=== PATIENT | female | born 1985 | race Caucasian/White ===

== ENCOUNTER → 2016-08-30 | Outpatient (REF) | payer OTHER ==
[~2016-08-30] MED LIST: /MOM400 PO; ACET50TA PO; ANUS2.5C2 EXT; DOCU10ELUD PO; IBUP600T26 PO; LANOOIN21 EX; PRENTAB74 PO
== END ==
LOC: M LAB REF 16:07
PROVIDERS: ATTEND Physician Assistant
DX: N39.0 Urinary tract infection, site not specified (principal)

== ENCOUNTER → 2016-10-20 | Outpatient (REF) | payer OTHER | LOC: M SFHCWAGY 10:17 | PROVIDERS: ATTEND Nurse Practitioner Women's Health | DX: Z12.4 Encounter for screening for malignant neoplasm of cervix (principal) ==

== ENCOUNTER → 2017-01-01 | Outpatient (REF) | payer OTHER ==
[2017-01-01 09:45] LABS: BASO % 0.6 % (0.0-1.0); EOS % 1.1 % (0.0-3.0); LARGE UNSTAINED CELL # 0.1 K/mm3 (0.0-0.4); LARGE UNSTAINED CELL % 2.7 % (0.0-4.0); LYMPH # 1.5 K/mm3 (1.5-4.5); LYMPH % 35.4 % (24.0-44.0); MEAN CORPUSCULAR HEMOGLOBIN 33.6 pg (27.0-33.0); MEAN CORPUSCULAR HGB CONC 35.1 g/dl (32.0-36.5); MEAN CORPUSCULAR VOLUME 95.6 fl (80.0-96.0); MONO # 0.3 K/mm3 (0.0-0.8); MONO % 6.6 % (0.0-5.0); NEUTROPHILS # 2.1 K/mm3 (1.8-7.7); NEUTROPHILS % 53.6 % (36.0-66.0); PLATELET COUNT, AUTOMATED 321 k/mm3 (150-450); WHITE BLOOD COUNT 3.9 K/mm3 (4.0-10.0)
[2017-01-01 09:58] LABS: FREE T4 1.2 NG/DL (0.76-1.46)
== END ==
LOC: M SFHCPLAZ 07:44
PROVIDERS: ATTEND Nurse Practitioner Family
DX: E53.8 Deficiency of other specified B group vitamins (principal); L65.9 Nonscarring hair loss, unspecified; E55.9 Vitamin D deficiency, unspecified

== ENCOUNTER → 2017-02-18 | Outpatient (CLI) | payer OTHER ==
[2017-02-18 17:23] LABS: BASO # 0.1 K/mm3 (0.0-0.2); BASO % 1.1 % (0.0-1.0); EOS # 0.1 K/mm3 (0.0-0.50); EOS % 1.1 % (0.0-3.0); LARGE UNSTAINED CELL # 0.1 K/mm3 (0.0-0.4); LARGE UNSTAINED CELL % 1.3 % (0.0-4.0); LYMPH % 29.9 % (24.0-44.0); MEAN CORPUSCULAR HEMOGLOBIN 33.3 pg (27.0-33.0); MEAN CORPUSCULAR HGB CONC 35.2 g/dl (32.0-36.5); MEAN CORPUSCULAR VOLUME 94.7 fl (80.0-96.0); MONO # 0.4 K/mm3 (0.0-0.8); MONO % 5.7 % (0.0-5.0); NEUTROPHILS # 4.2 K/mm3 (1.8-7.7); NEUTROPHILS % 60.9 % (36.0-66.0); PLATELET COUNT, AUTOMATED 381 k/mm3 (150-450); RED CELL DISTRIBUTION WIDTH 11.7 % (11.5-14.5); WHITE BLOOD COUNT 6.8 K/mm3 (4.0-10.0)
--- NOTE | 2017-02-18 17:35 | REP ---
Clinical: Shortness of breath . Comparison: 01/03/2012 . Technique: PA and lateral. Findings: The mediastinum and cardiac silhouette are normal. The lung selby are clear and without acute consolidation, effusion, or pneumothorax. The skeletal structures are intact and normal. Impression: 1. No acute cardiopulmonary process. Signed by Rom Islas MD 02/18/2017 05:27 P
[2017-02-18 18:08] LABS: ALBUMIN 4.5 GM/DL (3.2-5.2); ALBUMIN/GLOBULIN RATIO 1.32 (1.00-1.93); ALKALINE PHOSPHATASE 78 U/L (45-117); ALT/SGPT 18 U/L (12-78); ANION GAP 7 MEQ/L (8-16); AST/SGOT 7 U/L (15-37); BILIRUBIN,TOTAL 0.4 MG/DL (0.2-1.0); BLOOD UREA NITROGEN 9 MG/DL (7-18); CALCIUM LEVEL 9.4 MG/DL (8.5-10.1); CARBON DIOXIDE LEVEL 28 MEQ/L (21-32); CHLORIDE LEVEL 103 MEQ/L (98-107); CREATININE FOR GFR 0.75 MG/DL (0.55-1.02); GLOMERULAR FILTRATION RATE > 60.0 (>60); GLUCOSE, FASTING 93 MG/DL (70-105); POTASSIUM SERUM 3.5 MEQ/L (3.5-5.1); SODIUM LEVEL 138 MEQ/L (136-145); TOTAL PROTEIN 7.9 GM/DL (6.4-8.2)
== END ==
LOC: M LAB 16:49
PROVIDERS: ATTEND Nurse Practitioner Family
DX: R06.02 Shortness of breath (principal)

== ENCOUNTER → 2017-02-18 | Outpatient (REF) | payer OTHER | LOC: M SFHCPLAZ 16:18 | PROVIDERS: ATTEND Nurse Practitioner Family | DX: R06.02 Shortness of breath (principal); Z53.9 Procedure and treatment not carried out, unspecified reason ==

== ENCOUNTER 2018-11-17 09:45 | Outpatient (RCR) | payer OTHER | END 2018-11-20 | LOC: M PT 09:45 | PROVIDERS: ATTEND Nurse Practitioner Family | DX: M77.01 Medial epicondylitis, right elbow (principal); G56.21 Lesion of ulnar nerve, right upper limb ==

== ENCOUNTER 2018-11-29 08:15 | Outpatient (RCR) | payer OTHER ==
[~2018-11-29 08:15] MED LIST changes: -/MOM400 PO; -ACET50TA PO; -DOCU10ELUD PO; +DOCU5LIQ PO; +MAPA500T17 PO; +MILK10SU PO
== END 2018-12-20 ==
LOC: M PT 08:15
PROVIDERS: ATTEND Nurse Practitioner Family
DX: M77.01 Medial epicondylitis, right elbow (principal); G56.21 Lesion of ulnar nerve, right upper limb

== ENCOUNTER → 2018-12-28 | Outpatient (CLI) | payer OTHER ==
[~2018-12-28] MED LIST changes: +ADDE30CA3 PO; +CEFD300CAP PO; +LAMI1TAB8 PO; +PERC5TAB12 PO
--- NOTE | 2018-12-29 02:11 | REP ---
Clinical: Acute lower back pain . Technique: AP, lateral, bilateral oblique, and coned-down views. Findings: Alignment and lordosis is maintained. The vertebral bodies including transverse process and spinous processes are intact and normal. There is no evidence for acute fracture / compression injury or subluxation. No evidence for spondylolysis or spondylolisthesis. No significant degenerative change is noted. Impression: Normal lumbosacral spine radiograph series. Electronically Signed by Rom Islas MD 12/29/2018 02:02 A
== END ==
LOC: M RAD 13:50
PROVIDERS: ATTEND Nurse Practitioner Family
DX: M54.5 Low back pain (principal)

== ENCOUNTER 2018-12-29 13:18 | Emergency (ER) | payer OTHER ==
[~2018-12-29] VITALS: Ht 157.5 cm; Wt 74.2 kg
[~2018-12-29 13:18] MED LIST changes: -ADDE30CA3 PO; -CEFD300CAP PO; -LAMI1TAB8 PO; -PERC5TAB12 PO
[2018-12-29] MEDS ORDERED: LAMI1TAB8 PO (13:23)
[2018-12-29] MEDS ORDERED: CEFD300CAP PO (13:23)
[2018-12-29] MEDS ORDERED: ADDE30CA3 PO (13:23)
[2018-12-29] MEDS ORDERED: LIDOCAINE 1% MDV 20ML VIAL SC ONE (15:00)
[2018-12-29] MEDS ORDERED: PERC5TAB12 PO (15:42)
[2018-12-29 16:05] VITALS: BP 135/78
== END 2018-12-29 16:08 | disposition home or self-care (01) ==
LOC: M ED 13:18
DX: N75.1 Abscess of Bartholin's gland (principal); F31.9 Bipolar disorder, unspecified; F33.9 Major depressive disorder, recurrent, unspecified; Z88.0 Allergy status to penicillin; Z88.1 Allergy status to other antibiotic agents

== ENCOUNTER 2019-04-10 10:47 | Emergency (ER) | payer OTHER ==
[~2019-04-10] VITALS: Ht 157.5 cm; Wt 73.7 kg
[~2019-04-10 10:47] MED LIST changes: +ADDE30CA3 PO; +CEFD300CAP PO; +LAMI1TAB8 PO; +PERC5TAB12 PO
[2019-04-10] MEDS ORDERED: CLON0.5T8 (10:52)
--- NOTE | 2019-04-10 14:33 | CR.PDOC ---
General Date of Consultation: Apr 10, 2019 Referring Provider: COLT SANDHU PA-C Attending Physician: GEORGES COLE CNM Consultation REASON FOR CONSULTATION/CHIEF COMPLAINT: Bartholin cyst. HISTORY OF PRESENT ILLNESS: Patient is a 34-year-old female who presents with complaints of a Bartholin cyst that started over the last 3 days. She reports since yesterday it has doubled in size. States she is having pain and discomfort even with sitting. Patient had a Bartholin cyst in December that was drained. Reports pain is a 5/10. ALLERGIES: Please see below. HOME MEDICATIONS: Please see below. PAST MEDICAL HISTORY: 1. Depression. 2. Bartholin cyst in December 2018. PAST SURGICAL HISTORY: 1. none FAMILY HISTORY: non-contributory SOCIAL HISTORY: Children: Employment: employed Tobacco use:no Illicit drug use: none IV drug use: no PHYSICAL EXAMINATION: VITAL SIGNS: Please see below. CONSTITUTIONAL: A+Ox3. RESPIRATORY: regular rate without use of accessory muscles. GENITOURINARY: Moderate size Bartholin abscess located on right side. Size of half dollar with erythema. SKIN: Warm, dry without rash or lesions. LABORATORY DATA: Please see below. Procedure: I&D of Bartholin abscess: Area was cleaned with Betadine. No anesthesia used. A small incision was made using a disposable blade. Purulent green and yellow discharge drained/expressed from incision. 4x4 applied to area. ASSESSMENT/PLAN: 1. Patient is to call with fever, pain or signs of infection at site. 2. Note given per patient's request to wear loose pants to work. Vital Signs/I&O Vital Signs Date Time Temp Pulse Resp B/P (MAP) Pulse Ox O2 Delivery O2 Flow Rate FiO2 04/10/19 13:41 04/10/19 10:47 98.2 91 16 98 Room Air Allergies Coded Allergies: amoxicillin (Verified Allergy, Unknown, 12/29/18) ciprofloxacin (Verified Allergy, Unknown, 12/29/18) Home Medications Scheduled Dextroamphetamine/Amphetamine (Adderall Xr 30 mg Capsule) 30 Mg Cap.er.24h, 30 MG PO QAM for 30 Days, #30 (Reported) Lamotrigine (Lamictal) 150 Mg Tablet, 150 MG PO BID for 30 Days, #60 (Reported) Miscellaneous Medications Clonazepam (Clonazepam) 0.5 Mg Tablet, (Reported) GEORGES COLE CNM Apr 10, 2019 14:33
[2019-04-10 15:12] VITALS: BP 122/77
== END 2019-04-10 15:17 | disposition home or self-care (01) ==
LOC: M ED 10:47
DX: N75.1 Abscess of Bartholin's gland (principal); F41.9 Anxiety disorder, unspecified; F33.9 Major depressive disorder, recurrent, unspecified; Z79.899 Other long term (current) drug therapy; Z87.42 Personal history of other diseases of the female genital tract; Z87.59 Personal history of other complications of pregnancy, childbirth and the puerperium; Z98.890 Other specified postprocedural states; Z88.0 Allergy status to penicillin

== ENCOUNTER → 2019-04-15 | Outpatient (CLI) | payer OTHER ==
[~2019-04-15] MED LIST changes: +CLON0.5T2; +CYMB60CA3 PO
--- NOTE | 2019-04-15 14:11 | REP ---
Right ring finger four views : There is no fracture or dislocation. Mineralization and joint spaces are normal. There are no calcifications or foreign bodies. Impression: Negative Right ring finger . Electronically Signed by Hernan Antonio MD 04/15/2019 02:02 P
== END ==
LOC: M WUC 13:21
PROVIDERS: ATTEND Physician Assistant
DX: S60.041A Contusion of right ring finger without damage to nail, initial encounter (principal); X58.XXXA Exposure to other specified factors, initial encounter; Y92.9 Unspecified place or not applicable

== ENCOUNTER → 2019-05-25 | Outpatient (REF) | payer OTHER ==
[~2019-05-25] MED LIST changes: -CLON0.5T2; +CLON0.5T8; -CYMB60CA3 PO
[2019-05-25 14:52] LABS: HEMATOCRIT 39.8 % (36.0-47.0); MEAN CORPUSCULAR HEMOGLOBIN 30.2 pg (27.0-33.0); MEAN CORPUSCULAR HGB CONC 32.7 g/dl (32.0-36.5); MEAN CORPUSCULAR VOLUME 92.3 fl (80.0-96.0); PLATELET COUNT, AUTOMATED 415 10^3/uL (150-450); RED BLOOD COUNT 4.31 10^6/uL (4.00-5.40); WHITE BLOOD COUNT 6.6 10^3/uL (4.0-10.0)
[2019-05-25 15:07] LABS: ALBUMIN 4.2 GM/DL (3.2-5.2); ALT/SGPT 19 U/L (12-78); BLOOD UREA NITROGEN 6 MG/DL (7-18); CALCIUM LEVEL 9.5 MG/DL (8.5-10.1); CARBON DIOXIDE LEVEL 30 MEQ/L (21-32); CHLORIDE LEVEL 100 MEQ/L (98-107); CHOLESTEROL LEVEL 143 MG/DL (<200); CHOLESTEROL RISK RATIO 2.234 (<5); CREATININE FOR GFR 0.71 MG/DL (0.55-1.30); FREE T4 0.91 NG/DL (0.76-1.46); GLOMERULAR FILTRATION RATE > 60.0 (>60); GLUCOSE, FASTING 86 MG/DL (70-100); HDL CHOLESTEROL 64 MG/DL (>40); LDL CHOLESTEROL 61 MG/DL (<100); NON-HDL-C 79 MG/DL; POTASSIUM SERUM 4.5 MEQ/L (3.5-5.1); SODIUM LEVEL 137 MEQ/L (136-145); TOTAL 25(OH) VITAMIN D 22.6 NG/ML (30.0-100.0); TOTAL PROTEIN 7.6 GM/DL (6.4-8.2); TRIGLYCERIDES LEVEL 90 MG/DL (<150)
== END ==
LOC: M SFHCPLAZ 10:57
PROVIDERS: ATTEND Nurse Practitioner Family
DX: Z00.00 Encounter for general adult medical examination without abnormal findings (principal); F41.8 Other specified anxiety disorders; R53.83 Other fatigue; E55.9 Vitamin D deficiency, unspecified; Z13.220 Encounter for screening for lipoid disorders; Z68.30 Body mass index [BMI] 30.0-30.9, adult

== ENCOUNTER → 2019-05-26 | Outpatient (REF) | payer OTHER ==
[2019-05-31 08:20] LABS: HPV HYBRID CAPTURE II Negative (Negative)
== END ==
LOC: M SFHCWAGY 13:27
PROVIDERS: ATTEND Nurse Practitioner Women's Health
DX: Z12.4 Encounter for screening for malignant neoplasm of cervix (principal)

== ENCOUNTER 2019-06-17 07:17 | Emergency (ER) | payer OTHER ==
[~2019-06-17] VITALS: Ht 154.9 cm; Wt 77.7 kg
[2019-06-17 07:17] VITALS: BP 138/82
[2019-06-17] MEDS ORDERED: CYMB60CA3 PO (07:21)
[2019-06-17] MEDS ORDERED: LIDOCAINE 1% MDV 20ML VIAL SC ONE (07:30)
[2019-06-17] MEDS ORDERED: IBUPROFEN 800 MG TAB PO ONE (08:00)
== END 2019-06-17 08:08 | disposition home or self-care (01) ==
LOC: M ED 07:17
DX: S61.211A Laceration without foreign body of left index finger without damage to nail, initial encounter (principal); W26.8XXA Contact with other sharp object(s), not elsewhere classified, initial encounter; Y92.009 Unspecified place in unspecified non-institutional (private) residence as the place of occurrence of the external cause; Y93.89 Activity, other specified; Y99.8 Other external cause status; Z79.899 Other long term (current) drug therapy; Z88.1 Allergy status to other antibiotic agents; Z88.0 Allergy status to penicillin

== ENCOUNTER → 2019-08-04 | Outpatient (CLI) | payer OTHER ==
[~2019-08-04] MED LIST changes: +CLON0.5T2; -CLON0.5T8; +CYMB60CA3 PO
--- NOTE | 2019-08-04 15:49 | REP ---
Five views lumbar spine: 08/04/2019. Indication: Low back pain. Comparison: 12/28/2018. Findings: There is no acute fracture, subluxation or dislocation. No lytic or blastic lesions are present. Impression: No acute osseous injury of the lumbar spine. Electronically Signed by Corey Armando DO 08/04/2019 03:40 P
== END ==
LOC: M WUC 15:00
PROVIDERS: ATTEND Nurse Practitioner Family
DX: M54.5 Low back pain (principal)

== ENCOUNTER → 2019-09-18 | Outpatient (CLI) | payer OTHER ==
[2019-09-18 19:05] LABS: BASO # 0.1 10^3/uL (0.0-0.2); BASO % 0.6 % (0.0-1.0); EOS # 0.1 10^3/uL (0.0-0.5); HEMOGLOBIN 12.3 g/dl (12.0-15.5); LYMPH # 2.7 10^3/uL (1.5-5.0); LYMPH % 34.6 % (24.0-44.0); MEAN CORPUSCULAR HEMOGLOBIN 30.1 pg (27.0-33.0); MEAN CORPUSCULAR HGB CONC 33.2 g/dl (32.0-36.5); MEAN CORPUSCULAR VOLUME 90.5 fl (80.0-96.0); MONO # 0.8 10^3/uL (0.0-0.8); MONO % 9.7 % (0.0-5.0); NEUTROPHILS # 4.3 10^3/uL (1.5-8.5); NEUTROPHILS % 53.7 % (36.0-66.0); PLATELET COUNT, AUTOMATED 399 10^3/uL (150-450); RED BLOOD COUNT 4.09 10^6/uL (4.00-5.40); WHITE BLOOD COUNT 7.9 10^3/uL (4.0-10.0)
[2019-09-18 19:43] LABS: ALBUMIN 4.2 GM/DL (3.2-5.2); ALT/SGPT 21 U/L (12-78); BILIRUBIN,TOTAL 0.2 MG/DL (0.2-1.0); BLOOD UREA NITROGEN 12 MG/DL (7-18); CALCIUM LEVEL 9.3 MG/DL (8.5-10.1); CARBON DIOXIDE LEVEL 27 MEQ/L (21-32); CHLORIDE LEVEL 103 MEQ/L (98-107); GLOMERULAR FILTRATION RATE > 60.0 (>60); GLUCOSE, FASTING 80 MG/DL (70-100); POTASSIUM SERUM 3.9 MEQ/L (3.5-5.1); SODIUM LEVEL 137 MEQ/L (136-145); TOTAL PROTEIN 7.5 GM/DL (6.4-8.2)
== END ==
LOC: M WUC 14:36
PROVIDERS: ATTEND Physician Assistant
DX: R21 Rash and other nonspecific skin eruption (principal)

== ENCOUNTER → 2019-10-04 | Outpatient (CLI) | payer OTHER ==
--- NOTE | 2019-10-04 16:21 | REP ---
Clinical: Pelvic pain. Technique: Transabdominal pelvic ultrasound followed by transvaginal examination for better evaluation of the endometrial and adnexa with color Doppler evaluation of the ovaries. Findings: Bladder is partially collapsed but grossly normal in appearance. Heterogeneous anteverted uterus measures 9.4 x 4.2 x 5.5 cm. Endometrial complex measures 12 mm thickness and has a normal trilaminar appearance. There is a 1.1 cm complex hypoechoic intramural lesion along the posterior uterine body which may reflect small fibroid. An 8 mm cyst is also identified in the lower uterine segment which may represent Nabothian cyst. The bilateral ovaries are normal in appearance and vascularity without torsion. Right ovary measures 2.6 x 1.5 x 2.4 cm (RI 0.42) left ovary measures 1.2 x 1.8 x 1.4 cm (vascularity noted). No pelvic fluid or adnexal mass lesion. Impression: Possible small intramural fibroid and sub centimeter Nabothian cyst.
== END ==
LOC: M WHC 14:49
PROVIDERS: ATTEND Nurse Practitioner Women's Health
DX: R10.2 Pelvic and perineal pain (principal)

== ENCOUNTER → 2019-11-12 | Outpatient (REF) | payer OTHER | LOC: M LAB REF 13:04 | PROVIDERS: ATTEND Physician Assistant | DX: J02.9 Acute pharyngitis, unspecified (principal) ==

== ENCOUNTER → 2020-02-18 | Outpatient (REF) | payer OTHER | LOC: M LAB REF 16:05 | PROVIDERS: ATTEND Physician Assistant | DX: R06.2 Wheezing (principal) ==

== ENCOUNTER → 2020-10-11 | Outpatient (REF) | payer OTHER | LOC: M WUC 09:44 | PROVIDERS: ATTEND Physician Assistant | DX: R30.0 Dysuria (principal) ==

== ENCOUNTER → 2021-03-08 | Outpatient (CLI) | payer OTHER ==
--- NOTE | 2021-03-08 18:57 | REP ---
INDICATION: ACUTE BRONCHITIS, UNSPECIFIED. COMPARISON: 02/18/2017 TECHNIQUE: Two views FINDINGS: Lungs are well inflated without infiltrate, effusion, atelectasis or mass. I see no peribronchial thickening or streaky densities in either lung. No pleural effusion or pleural thickening. The heart is not enlarged. The aorta and airway intact. No widening of the mediastinum. Hilar contours symmetric and normal. Bony thorax shows no focal lesion. There is no free air under the diaphragm. IMPRESSION: 1. No acute cardiopulmonary change. Stable chest. <Electronically signed by Juan Mackey > 03/08/21 [id number]
== END ==
LOC: M RAD 09:24
PROVIDERS: ATTEND Physician Assistant
DX: J20.9 Acute bronchitis, unspecified (principal); Z20.828 Contact with and (suspected) exposure to other viral communicable diseases

== ENCOUNTER → 2021-04-20 | Outpatient (CLI) | payer OTHER ==
--- NOTE | 2021-04-20 15:04 | REP ---
INDICATION: LOW BACK PAIN COMPARISON: None. TECHNIQUE: AP, lateral, coned-down views of the lumbar spine. FINDINGS: Three views of the lumbosacral spine demonstrate satisfactory alignment and lordosis without acute fracture / compression injury or subluxation. No significant degenerative changes noted. IMPRESSION: 1. No acute fracture / compression injury or subluxation. 2. No significant degenerative changes are appreciated. <Electronically signed by Rom Islas > 04/20/21 1500
== END ==
LOC: M LAB 11:06
PROVIDERS: ATTEND Physician Assistant
DX: M54.5 Low back pain (principal)

== ENCOUNTER → 2021-04-20 | Outpatient (REF) | payer OTHER | LOC: M LAB REF 19:13 | PROVIDERS: ATTEND Physician Assistant | DX: M54.5 Low back pain (principal) ==

== ENCOUNTER 2021-06-13 08:38 | Outpatient (RCR) | payer OTHER ==
[~2021-06-13 08:38] MED LIST changes: -CYMB60CA3 PO; +CYMB60CA4 PO
== END 2021-06-22 ==
LOC: M PT 08:38
PROVIDERS: ATTEND Orthopaedic Surgery
DX: M54.50 Low back pain, unspecified (principal)

== ENCOUNTER → 2021-06-19 | Outpatient (CLI) | payer OTHER | LOC: M LABSMTC 10:10 | PROVIDERS: ATTEND Family Medicine | DX: Z20.822 Contact with and (suspected) exposure to COVID-19 (principal) | CPT/HCPCS: C9803; U0003 ==

== ENCOUNTER → 2021-06-25 | Outpatient (CLI) | payer OTHER ==
[2021-06-25 11:52] LABS: FOLATE 13.2 NG/ML; FREE T4 0.92 NG/DL (0.76-1.46); RHEUMATOID FACTOR QUANT < 10.0 IU/ML (<15.0); THYROID STIMULATING HORMONE 0.557 uIU/ML (0.358-3.740); VITAMIN B12 LEVEL 265 PG/ML
[2021-06-25 13:24] LABS: HEMOGLOBIN A1c 4.9 %
[2021-06-26 15:08] LABS: ANTINUCLEAR ANTIBODIES DIRECT Negative (Negative); Lyme Disease IgG/IgM Antibodie <0.91 ISR (0.00-0.90); Lyme Disease IgM Ab Quantitati <0.80 index (0.00-0.79)
== END ==
LOC: M LAB 09:32
PROVIDERS: ATTEND Psychiatry & Neurology Neurology
DX: R20.0 Anesthesia of skin (principal); E11.9 Type 2 diabetes mellitus without complications; E07.9 Disorder of thyroid, unspecified; Z11.8 Encounter for screening for other infectious and parasitic diseases

== ENCOUNTER 2021-06-26 08:45 | Outpatient (RCR) | payer OTHER | END 2021-07-22 | LOC: M PT 08:45 | PROVIDERS: ATTEND Orthopaedic Surgery | DX: M54.50 Low back pain, unspecified (principal) ==

== ENCOUNTER → 2021-06-27 | Outpatient (REF) | payer OTHER | LOC: M LAB REF 12:18 | PROVIDERS: ATTEND Psychiatry & Neurology Neurology | DX: R20.0 Anesthesia of skin (principal); E07.9 Disorder of thyroid, unspecified; E11.9 Type 2 diabetes mellitus without complications ==

== ENCOUNTER → 2021-09-01 | Outpatient (REF) | payer OTHER ==
[2021-09-01 13:15] LABS: RSV AMPLIFICATION NEGATIVE (NEGATIVE)
== END ==
LOC: M LAB REF 12:11
PROVIDERS: ATTEND Physician Assistant
DX: R05.9 Cough, unspecified (principal)

== ENCOUNTER → 2021-12-10 | Outpatient (CLI) | payer OTHER ==
[~2021-12-10] MED LIST changes: +PROHANCE 279.3MG/ML 15ML VIAL ONE
== END ==
LOC: M PLAIMG 13:53
PROVIDERS: ATTEND Nurse Practitioner Family
DX: H53.8 Other visual disturbances (principal)
CPT/HCPCS: 70553; A9576

== ENCOUNTER → 2022-03-13 | Outpatient (CLI) | payer OTHER ==
[~2022-03-13] MED LIST changes: -PROHANCE 279.3MG/ML 15ML VIAL ONE
== END ==
LOC: M WUC 13:08
PROVIDERS: ATTEND Student in an Organized Health Care Education/Training Program
DX: M25.572 Pain in left ankle and joints of left foot (principal); M79.89 Other specified soft tissue disorders

== ENCOUNTER → 2022-04-27 | Outpatient (CLI) | payer OTHER ==
[2022-04-27 09:45] LABS: BASO % 0.8 % (0.0-1.0); EOS # 0.1 10^3/uL (0.0-0.5); EOS % 2.3 % (0.0-3.0); HEMATOCRIT 33.4 % (36.0-47.0); HEMOGLOBIN 11.9 g/dl (12.0-15.5); LYMPH % 41.2 % (24.0-44.0); MEAN CORPUSCULAR HEMOGLOBIN 34.4 pg (27.0-33.0); MEAN CORPUSCULAR HGB CONC 35.6 g/dl (32.0-36.5); MEAN CORPUSCULAR VOLUME 96.5 fl (80.0-96.0); MONO # 0.5 10^3/uL (0.0-0.8); MONO % 9.7 % (2.0-8.0); NEUTROPHILS # 2.2 10^3/uL (1.5-8.5); NEUTROPHILS % 45.6 % (36.0-66.0); PLATELET COUNT, AUTOMATED 333 10^3/uL (150-450); RED BLOOD COUNT 3.46 10^6/uL (4.00-5.40); WHITE BLOOD COUNT 4.8 10^3/uL (4.0-10.0)
[2022-04-27 10:57] LABS: BLOOD UREA NITROGEN 10 MG/DL (7-18); CALCIUM LEVEL 9.4 MG/DL (8.5-10.1); CARBON DIOXIDE LEVEL 28 MEQ/L (21-32); CHLORIDE LEVEL 103 MEQ/L (98-107); CREATININE FOR GFR 0.68 MG/DL (0.55-1.30); FREE T4 0.87 NG/DL (0.76-1.46); GLOMERULAR FILTRATION RATE > 60.0 (>60); GLUCOSE, FASTING 92 MG/DL (70-100); POTASSIUM SERUM 4.6 MEQ/L (3.5-5.1); SODIUM LEVEL 133 MEQ/L (136-145); THYROID STIMULATING HORMONE 0.971 uIU/ML (0.358-3.740)
== END ==
LOC: M LAB 09:10
PROVIDERS: ATTEND Physician Assistant
DX: R42 Dizziness and giddiness (principal); R11.0 Nausea

== ENCOUNTER 2022-09-06 18:57 | Emergency (ER) | payer OTHER ==
[~2022-09-06] VITALS: Ht 154.9 cm; Wt 59.2 kg
[2022-09-06 18:57] VITALS: BP 141/81
[2022-09-06] MEDS ORDERED: VENL150C43 PO (19:17)
[2022-09-06] MEDS ORDERED: ATIV1TAB10 PO (19:17)
[2022-09-06] MEDS ORDERED: BUPR300T92 PO (19:17)
[2022-09-06] MEDS ORDERED: GABA-282 PO (19:17)
== END 2022-09-06 20:13 | disposition left against medical advice (07) ==
LOC: M ED 18:57
DX: Z53.21 Procedure and treatment not carried out due to patient leaving prior to being seen by health care provider (principal)

== ENCOUNTER → 2022-10-22 | Outpatient (REF) | payer OTHER ==
[~2022-10-22] MED LIST changes: +ATIV1TAB10 PO; +BUPR300T92 PO; +GABA-282 PO; +VENL150C43 PO
== END ==
LOC: M WUC 11:36
PROVIDERS: ATTEND Physician Assistant
DX: R30.0 Dysuria (principal)

== ENCOUNTER → 2023-04-16 | Outpatient (CLI) | payer OTHER ==
[2023-04-16 10:08] LABS: BASO % 0.6 % (0.0-1.0); EOS # 0.1 10^3/uL (0.0-0.5); EOS % 1.1 % (0.0-3.0); HEMATOCRIT 38.3 % (36.0-47.0); HEMOGLOBIN 13.1 g/dl (12.0-15.5); LYMPH # 1.8 10^3/uL (1.5-5.0); LYMPH % 37.6 % (24.0-44.0); MEAN CORPUSCULAR HEMOGLOBIN 33.4 pg (27.0-33.0); MEAN CORPUSCULAR HGB CONC 34.2 g/dl (32.0-36.5); MEAN CORPUSCULAR VOLUME 97.7 fl (80.0-96.0); MONO # 0.4 10^3/uL (0.0-0.8); MONO % 8.8 % (2.0-8.0); NEUTROPHILS # 2.5 10^3/uL (1.5-8.5); NEUTROPHILS % 51.5 % (36.0-66.0); PLATELET COUNT, AUTOMATED 333 10^3/uL (150-450); RED BLOOD COUNT 3.92 10^6/uL (4.00-5.40); WHITE BLOOD COUNT 4.8 10^3/uL (4.0-10.0)
[2023-04-16 10:32] LABS: ALBUMIN 4.2 G/DL (3.2-5.2); ALKALINE PHOSPHATASE 67 U/L (46-116); ALT/SGPT 13 U/L (7.0-40); AST/SGOT < 8 U/L (<34); BILIRUBIN,TOTAL 0.7 MG/DL (0.3-1.2); BLOOD UREA NITROGEN 7 MG/DL (9-23); CALCIUM LEVEL 9.6 MG/DL (8.5-10.1); CARBON DIOXIDE LEVEL 30 MMOL/L (20-31); CHLORIDE LEVEL 101 MMOL/L (98-107); CPK CREATINE PHOSPHOKINASE 83 U/L (34-145); CREATININE FOR GFR 0.67 MG/DL (0.55-1.30); GLOMERULAR FILTRATION RATE > 60.0 (>58); GLUCOSE, FASTING 76 MG/DL (60-100); SODIUM LEVEL 137 MMOL/L (136-145); TOTAL PROTEIN 6.9 G/DL (5.7-8.2)
== END ==
LOC: M WUC 09:02
PROVIDERS: ATTEND Nurse Practitioner Family
DX: R07.82 Intercostal pain (principal)

== ENCOUNTER 2023-06-16 09:23 | Emergency (ER) | payer OTHER ==
[~2023-06-16] VITALS: Ht 154.9 cm; Wt 56.2 kg
[~2023-06-16 09:23] MED LIST changes: +CEPH500C PO; +IBUP1TAB5 PO; +METR-265 PO; +TRAM50TA2 PO
[2023-06-16] MEDS ORDERED: BACTDSTA (09:30)
[2023-06-16] MEDS ORDERED: LIDOCAINE 1% MDV 20ML VIAL SC ONE (09:40)
[2023-06-16 10:30] VITALS: BP 128/72; TEMP 98.8; O2SAT 99
== END 2023-06-16 10:55 | disposition home or self-care (01) ==
LOC: M ED 09:23
DX: L72.3 Sebaceous cyst (principal); F31.9 Bipolar disorder, unspecified; F32.A Depression, unspecified; Z88.1 Allergy status to other antibiotic agents; Z79.899 Other long term (current) drug therapy

== ENCOUNTER → 2023-08-31 | Outpatient (CLI) | payer OTHER ==
[~2023-08-31] MED LIST changes: +BACTDSTA
[2023-08-31 10:57] LABS: BASO # 0.1 10^3/uL (0.0-0.2); BASO % 0.8 % (0.0-1.0); EOS # 0.1 10^3/uL (0.0-0.5); EOS % 1.5 % (0.0-3.0); HEMATOCRIT 38.5 % (36.0-47.0); HEMOGLOBIN 13.2 g/dl (12.0-15.5); LYMPH # 2.3 10^3/uL (1.5-5.0); LYMPH % 34.6 % (24.0-44.0); MEAN CORPUSCULAR HEMOGLOBIN 34.1 pg (27.0-33.0); MEAN CORPUSCULAR HGB CONC 34.3 g/dl (32.0-36.5); MEAN CORPUSCULAR VOLUME 99.5 fl (80.0-96.0); MONO # 0.8 10^3/uL (0.0-0.8); MONO % 11.3 % (2.0-8.0); NEUTROPHILS # 3.4 10^3/uL (1.5-8.5); NEUTROPHILS % 51.6 % (36.0-66.0); PLATELET COUNT, AUTOMATED 363 10^3/uL (150-450); RED BLOOD COUNT 3.87 10^6/uL (4.00-5.40); WHITE BLOOD COUNT 6.6 10^3/uL (4.0-10.0)
[2023-08-31 11:17] LABS: ALBUMIN 4.2 G/DL (3.2-5.2); ALKALINE PHOSPHATASE 63 U/L (46-116); ALT/SGPT 14 U/L (7.0-40); AST/SGOT 13 U/L (<34); BILIRUBIN,TOTAL 0.6 MG/DL (0.3-1.2); BLOOD UREA NITROGEN 9 MG/DL (9-23); CALCIUM LEVEL 9.5 MG/DL (8.5-10.1); CARBON DIOXIDE LEVEL 28 MMOL/L (20-31); CHLORIDE LEVEL 106 MMOL/L (98-107); CREATININE FOR GFR 0.67 MG/DL (0.55-1.30); GLOMERULAR FILTRATION RATE > 60.0 (>58); GLUCOSE, FASTING 76 MG/DL (60-100); POTASSIUM SERUM 3.9 MMOL/L (3.5-5.1); SODIUM LEVEL 138 MMOL/L (136-145); TOTAL PROTEIN 6.8 G/DL (5.7-8.2)
== END ==
LOC: M LAB 09:58
PROVIDERS: ATTEND Psychiatry & Neurology Psychiatry
DX: Z79.899 Other long term (current) drug therapy (principal)

== ENCOUNTER → 2024-08-02 | Outpatient (REF) | payer OTHER ==
[~2024-08-02] MED LIST changes: +BUPR-597 PO; -BUPR300T92 PO; +GABA-1172 PO; -GABA-282 PO
[2024-08-02 14:17] LABS: BASO % 0.7 % (0.0-1.0); EOS # 0.1 10^3/uL (0.0-0.5); EOS % 2.5 % (0.0-3.0); HEMATOCRIT 36.2 % (36.0-47.0); HEMOGLOBIN 12.9 g/dl (12.0-15.5); LYMPH # 1.8 10^3/uL (1.5-5.0); LYMPH % 43.5 % (24.0-44.0); MEAN CORPUSCULAR HEMOGLOBIN 33.9 pg (27.0-33.0); MEAN CORPUSCULAR HGB CONC 35.6 g/dl (32.0-36.5); MEAN CORPUSCULAR VOLUME 95.3 fl (80.0-96.0); MONO # 0.4 10^3/uL (0.0-0.8); MONO % 8.9 % (2.0-8.0); NEUTROPHILS # 1.8 10^3/uL (1.5-8.5); NEUTROPHILS % 44.4 % (36.0-66.0); PLATELET COUNT, AUTOMATED 314 10^3/uL (150-450); WHITE BLOOD COUNT 4.1 10^3/uL (4.0-10.0)
[2024-08-02 14:31] LABS: ALBUMIN 4.1 G/DL (3.2-5.2); ALKALINE PHOSPHATASE 58 U/L (35-104); ALT/SGPT 11 U/L (7.0-40); AST/SGOT < 8 U/L (<34); BILIRUBIN,TOTAL 0.7 MG/DL (0.3-1.2); BLOOD UREA NITROGEN 11 MG/DL (9-23); CALCIUM LEVEL 10.1 MG/DL (8.5-10.1); CARBON DIOXIDE LEVEL 23 MMOL/L (20-31); CHLORIDE LEVEL 106 MMOL/L (98-107); CHOLESTEROL LEVEL 131 MG/DL (<200); CHOLESTEROL RISK RATIO 2.12 (<5); CREATININE FOR GFR 0.59 MG/DL (0.55-1.30); GLOMERULAR FILTRATION RATE > 60.0 (>58); GLUCOSE, FASTING 90 MG/DL (60-100); HDL CHOLESTEROL 61.6 MG/DL (>40); LDL CHOLESTEROL 59.8 MG/DL (<100); NON-HDL-C 69.4 MG/DL; SODIUM LEVEL 136 MMOL/L (136-145); THYROID STIMULATING HORMONE 1.397 uIU/ML (0.55-4.78); TOTAL PROTEIN 6.8 G/DL (5.7-8.2); TRIGLYCERIDES LEVEL 48 MG/DL (<150)
[2024-08-02 15:18] LABS: HEMOGLOBIN A1c 4.8 % (4.0-6.0)
== END ==
LOC: M LAB REF 13:07
PROVIDERS: ATTEND Nurse Practitioner Family
DX: R53.83 Other fatigue (principal); Z11.9 Encounter for screening for infectious and parasitic diseases, unspecified; Z13.6 Encounter for screening for cardiovascular disorders

== ENCOUNTER → 2024-09-13 | Outpatient (REF) | payer OTHER | LOC: M LAB REF 22:23 | PROVIDERS: ATTEND Physician Assistant | DX: B34.9 Viral infection, unspecified (principal) ==

== ENCOUNTER → 2024-10-25 | Outpatient (CLI) | payer OTHER ==
[2024-10-25 10:13] LABS: BASO # 0.1 10^3/uL (0.0-0.2); BASO % 1.1 % (0.0-1.0); EOS # 0.1 10^3/uL (0.0-0.5); EOS % 1.3 % (0.0-3.0); HEMATOCRIT 35.2 % (36.0-47.0); HEMOGLOBIN 12.3 g/dl (12.0-15.5); LYMPH # 1.8 10^3/uL (1.5-5.0); LYMPH % 39.5 % (24.0-44.0); MEAN CORPUSCULAR HEMOGLOBIN 34.2 pg (27.0-33.0); MEAN CORPUSCULAR HGB CONC 34.9 g/dl (32.0-36.5); MEAN CORPUSCULAR VOLUME 97.8 fl (80.0-96.0); MONO # 0.4 10^3/uL (0.0-0.8); MONO % 8.7 % (2.0-8.0); NEUTROPHILS # 2.2 10^3/uL (1.5-8.5); NEUTROPHILS % 49.2 % (36.0-66.0); PLATELET COUNT, AUTOMATED 349 10^3/uL (150-450); WHITE BLOOD COUNT 4.5 10^3/uL (4.0-10.0)
[2024-10-25 10:43] LABS: ALKALINE PHOSPHATASE 61 U/L (35-104); ALT/SGPT 13 U/L (7.0-40); AST/SGOT < 8 U/L (<34); BILIRUBIN,TOTAL 0.7 MG/DL (0.3-1.2); BLOOD UREA NITROGEN 10 MG/DL (9-23); CALCIUM LEVEL 9.3 MG/DL (8.5-10.1); CARBON DIOXIDE LEVEL 26 MMOL/L (20-31); CHLORIDE LEVEL 106 MMOL/L (98-107); CREATININE FOR GFR 0.63 MG/DL (0.55-1.30); GLOMERULAR FILTRATION RATE > 60.0 (>58); GLUCOSE, FASTING 79 MG/DL (60-100); MAGNESIUM LEVEL 1.8 MG/DL (1.8-2.4); SODIUM LEVEL 136 MMOL/L (136-145); TOTAL PROTEIN 6.8 G/DL (5.7-8.2)
[2024-10-25 10:45] LABS: FOLATE 12.19 NG/ML (>5.4)
[2024-10-25 10:49] LABS: HEMOGLOBIN A1c 4.6 % (4.0-6.0)
== END ==
LOC: M EKG 09:22
PROVIDERS: ATTEND Nurse Practitioner Psychiatric/Mental Health
DX: F33.2 Major depressive disorder, recurrent severe without psychotic features (principal); R00.1 Bradycardia, unspecified; I45.10 Unspecified right bundle-branch block

== ENCOUNTER 2025-03-10 12:47 | Emergency (ER) | payer OTHER ==
[~2025-03-10] VITALS: Ht 154.9 cm; Wt 50.7 kg
[~2025-03-10 12:47] MED LIST changes: -BUPR-597 PO; +BUPR-766 PO
[2025-03-10] MEDS ORDERED: MEDR4PAK PO (14:28)
[2025-03-10] MEDS ORDERED: CYCL-707 PO (14:28)
[2025-03-10] MEDS: KETOROLAC 30 MG/ML 1 ML VIAL IM ONE (14:32)
[2025-03-10 14:44] VITALS: BP 138/77; TEMP 97.2; O2SAT 100
== END 2025-03-10 14:49 | disposition home or self-care (01) ==
LOC: M ED 12:47
DX: M51.26 Other intervertebral disc displacement, lumbar region (principal); Z88.1 Allergy status to other antibiotic agents; Z79.899 Other long term (current) drug therapy
CPT/HCPCS: 96372; 99283; J1885

== ENCOUNTER → 2025-07-26 | Outpatient (CLI) | payer OTHER ==
[~2025-07-26] MED LIST changes: -BACTDSTA; +CYCL-707 PO; +MEDR4PAK PO; +SULF-8
== END ==
LOC: M CARPUL 13:09
PROVIDERS: ATTEND Internal Medicine Cardiovascular Disease
DX: R94.31 Abnormal electrocardiogram [ECG] [EKG] (principal)